=== PATIENT | male | born 1975 | race Caucasian/White ===

== ENCOUNTER 2021-10-04 21:12 | Emergency (ER) | payer OTHER ==
[~2021-10-04] VITALS: Ht 188 cm; Wt 79.4 kg
== END 2021-10-05 01:29 | disposition home or self-care (01) ==
LOC: ER 21:12
DX: S61.411A Laceration without foreign body of right hand, initial encounter (principal); W26.9XXA Contact with unspecified sharp object(s), initial encounter
CPT/HCPCS: 12002; 99282-25